=== PATIENT | female | born 1995 | race Caucasian/White ===

== ENCOUNTER 2018-08-19 02:11 | Emergency (ER) | payer SELFPAY ==
[2018-08-19] MEDS: HYDROCODONE/APAP (5/325) TAB PO (05:10)
== END 2018-08-19 05:24 | disposition home or self-care (01) ==
LOC: FTE 05:24
DX: J34.89 Other specified disorders of nose and nasal sinuses (principal)
CPT/HCPCS: 81025; 99283